=== PATIENT | female | born 1960 | race Caucasian/White ===

== ENCOUNTER 2020-04-30 16:33 | Emergency (ER) | payer MEDICARE, OTHER ==
--- NOTE | 2020-04-30 15:44 | CR ---
EXAMINATION: Chest 1V Frontal SEX: Female AGE: 60 years CLINICAL HISTORY: 60-year-old female complaining of shortness of breath (SOB). No comparison films. Interpretation: Abnormal. 1. Asymmetric dense consolidation left base has the appearance of dependent pleural fluid i.e. effusion (underlying atelectasis or infiltrate a differential consideration). 2. Borderline cardiomegaly but no cephalization vascular flow or alveolar edema. No right pleural effusion. 3. No lung mass or hilar lymphadenopathy. 4. Midline tracheal bronchial airway unremarkable. No pneumothorax or pneumomediastinum. CONCLUSION: Abnormality left lung base (consolidation lower left hemithorax).
--- NOTE | 2020-04-30 15:49 | EDM.PDOC ---
ED HPI GENERAL MEDICAL PROBLEM - General Stated Complaint: AMBULANCE Time Seen by Provider: 04/30/20 16:35 Source of Information: Reports: EMS, Family, RN Notes Reviewed History Limitations: Reports: Altered Mental Status - History of Present Illness INITIAL COMMENTS - FREE TEXT/NARRATIVE: ED via [facility] with report of some confusion last makayla breathing difficulty this afternoon, Was seen in clinic yesterday for routine check up Patient seen on arrival to ED. c . No recent medication changes. Hx COPD.Tonight rubbing head. Recent COVID past 2 week negative. Last hospitalization for pneumonia. SOB tod ay. EMS report acute distress with sats initially in 60-70's . No some improved with hi flow. Daughter reports soft falls" did not hit head, described as dizzy type and lowered to ground before syncope or fall. - Related Data Allergies Allergy/AdvReac Type Severity Reaction Status Date / Time Unable to Assess Allergy Unverified 04/30/20 15:54 ED ROS GENERAL - Review of Systems Review Of Systems: Comprehensive ROS is negative, except as noted in HPI. ED EXAM, GENERAL - Physical Exam Exam: See Below Exam Limited By: No Limitations General Appearance: Moderate Distress, Obese Eye Exam: Bilateral Eye: EOMI Ears: Normal External Exam Nose: Normal Inspection Throat/Mouth: Normal Inspection Head: Atraumatic, Normocephalic Neck: Normal Inspection Respiratory/Chest: Respiratory Distress, Decreased Breath Sounds, Crackles (bses) Cardiovascular: Regular Rate, Rhythm. No: No Edema GI/Abdominal: Soft Extremities: Pedal Edema. No: Joint Swelling Neurological: Slow to Respond Psychiatric: Flat Affect Skin Exam: Warm, Dry, Intact, Pallor Course - Vital Signs Last Recorded V/S: Last Vital Signs Temp 101.1 F H 04/30/20 15:30 Pulse 102 H 04/30/20 16:26 Resp 35 H 04/30/20 15:30 BP 94/46 L 04/30/20 15:30 Pulse Ox 95 04/30/20 16:26 - Orders/Labs/Meds Labs: Laboratory Tests 04/30/20 04/30/20 04/30/20 Range/Units 15:36 15:48 15:50 WBC 3.2 L (5.0-10.0) 10^3/uL RBC 4.41 (4.2-5.4) 10^6/uL Hgb 13.1 (12.0-16.0) g/dL Hct 40.1 (37.0-47.0) % MCV 90.9 (80-100) fL MCH 29.7 (27.0-34.0) pg MCHC 32.7 L (33.0-35.0) g/dL Plt Count 186 (150-450) 10^3/uL Neut % (Auto) 67.8 (42.2-75.2) % Lymph % (Auto) 19.7 L (20.5-50.1) % [place] % (Auto) 11.9 H (2-8) % Eos % (Auto) 0.3 L (1.0-3.0) % Baso % (Auto) 0.3 (0.0-1.0) % Add Manual Diff Yes Neutrophils % (Manual) 49 (42-75) % Band Neutrophils % 9 % Lymphocytes % (Manual) 25 (20-50) % Monocytes % (Manual) 13 H (2-8) % Metamyelocytes % 2 Myelocytes % 2 ABG pH 7.34 L (7.35-7.45) ABG pCO2 26 L (35-45) mmHg ABG pO2 80 (70-100) mmHg ABG HCO3 13.7 L (22-26) mmol/L ABG O2 Saturation 95 (95-100) % ABG Base Excess -10 L ((-2)-(+3)) mmol/L Edgar Test Performed O2 Delivery Device Bipap Sodium (136-145) mmol/L Potassium (3.5-5.1) mmol/L Chloride (98-107) mmol/L Carbon Dioxide (21-32) mmol/L Anion Gap (7-13) mEq/L BUN (7-18) mg/dL Creatinine (0.55-1.02) mg/dL Est Cr Clr Drug Dosing Estimated GFR (MDRD) BUN/Creatinine Ratio (No establ ref range) Glucose (74-99) mg/dL Lactic Acid (0.4-2.0) mmol/L Calcium (8.5-10.1) mg/dL Total Bilirubin (0.2-1.0) mg/dL AST (15-37) U/L ALT (14-59) U/L Alkaline Phosphatase (46-116) U/L Troponin I (0.000-0.056) ng/mL Total Protein (6.4-8.2) g/dL Albumin (3.4-5.0) g/dL Globulin Albumin/Globulin Ratio SARS-CoV-2 RNA (RT-PCR) Negative (NEGATIVE) 04/30/20 04/30/20 Range/Units 15:50 15:50 WBC (5.0-10.0) 10^3/uL RBC (4.2-5.4) 10^6/uL Hgb (12.0-16.0) g/dL Hct (37.0-47.0) % MCV (80-100) fL MCH (27.0-34.0) pg MCHC (33.0-35.0) g/dL Plt Count (150-450) 10^3/uL Neut % (Auto) (42.2-75.2) % Lymph % (Auto) (20.5-50.1) % [place] % (Auto) (2-8) % Eos % (Auto) (1.0-3.0) % Baso % (Auto) (0.0-1.0) % Add Manual Diff Neutrophils % (Manual) (42-75) % Band Neutrophils % % Lymphocytes % (Manual) (20-50) % Monocytes % (Manual) (2-8) % Metamyelocytes % Myelocytes % ABG pH (7.35-7.45) ABG pCO2 (35-45) mmHg ABG pO2 (70-100) mmHg ABG HCO3 (22-26) mmol/L ABG O2 Saturation (95-100) % ABG Base Excess ((-2)-(+3)) mmol/L Edgar Test O2 Delivery Device Sodium 136 (136-145) mmol/L Potassium 4.3 (3.5-5.1) mmol/L Chloride 100 (98-107) mmol/L Carbon Dioxide 17 L (21-32) mmol/L Anion Gap 23.3 H (7-13) mEq/L BUN 36 H (7-18) mg/dL Creatinine 4.19 H (0.55-1.02) mg/dL Est Cr Clr Drug Dosing TNP Estimated GFR (MDRD) 11 BUN/Creatinine Ratio 8.6 (No establ ref range) Glucose 197 H (74-99) mg/dL Lactic Acid 5.3 H* (0.4-2.0) mmol/L Calcium 8.1 L (8.5-10.1) mg/dL Total Bilirubin 0.8 (0.2-1.0) mg/dL AST 147 H (15-37) U/L ALT 56 (14-59) U/L Alkaline Phosphatase 40 L (46-116) U/L Troponin I 0.097 H* (0.000-0.056) ng/mL Total Protein 6.4 (6.4-8.2) g/dL Albumin 2.9 L (3.4-5.0) g/dL Globulin 3.5 Albumin/Globulin Ratio 0.83 SARS-CoV-2 RNA (RT-PCR) (NEGATIVE) Meds: Medications Discontinued Medications Generic Name Dose Route Start Last Admin Trade Name Freq PRN Reason Stop Dose Admin Albuterol Confirm 04/30/20 15:46 04/30/20 16:25 Proventil Neb Soln Administered 04/30/20 15:47 2.5 mg Dose Administration 2.5 mg .ROUTE .STK-MED ONE - Re-Assessments/Exams Free Text/Narrative Re-Assessment/Exam: 05/02/20 15:22 [facility] on arrival of patient, Needing Intubation. [facility] here. Intubation. ET placement confrmed, color change and exray. Good bilaterla breath sounds. OG with minimal return. Departure - Departure Time of Disposition: 17:00 Disposition: DC/Tfer to Acute Hospital 02 Condition: Critical, Undetermined Clinical Impression: COPD exacerbation, Metabolic acidosis, Elevated troponin, Hypoxia, Respiratory distress Congestive heart failure Qualifiers: Heart failure type: unspecified Heart failure chronicity: acute on chronic Qualified Code(s): I50.9 - Heart failure, unspecified Renal failure Qualifiers: Renal failure chronicity: acute Acute renal failure type: unspecified Qualified Code(s): N17.9 - Acute kidney failure, unspecified - Discharge Information *PRESCRIPTION DRUG MONITORING PROGRAM REVIEWED*: No *COPY OF PRESCRIPTION DRUG MONITORING REPORT IN PATIENT TERRIE: No Referrals: Delma Ball MD [Primary Care Provider] - Forms: ED Department Discharge
--- NOTE | 2020-04-30 16:23 | CR ---
PROCEDURE INFORMATION: Exam: XR Chest, 1 View Exam date and time: 04/30/2020 4:09 PM Age: 60 years old Clinical indication: Device placement; Ett placement (vent status); Additional info: Post intubation TECHNIQUE: Imaging protocol: XR of the chest Views: 1 view. COMPARISON: CR Chest 1V Frontal 04/30/2020 3:32 PM FINDINGS: Tubes, catheters and devices: Tip of endotracheal tube 3 cm proximal to the scott. NG tube in the left upper quadrant. Tip of the NG tube is not visualized. Lungs: Patchy opacity left lung base may represent atelectasis and or a pneumonitis. Pleural space: Blunting of the left costophrenic angle consistent with a pleural effusion. Heart/Mediastinum: Unremarkable. No cardiomegaly. Bones/joints: Unremarkable. IMPRESSION: 1. Blunting of the left costophrenic angle consistent with a pleural effusion. 2. Patchy opacity left lung base may represent atelectasis and or a pneumonitis.
[2020-04-30 16:31] LABS: ANION GAP 23.3 mEq/L (7-13); CHLORIDE,CL 100 mmol/L (98-107); SODIUM,NA 136 mmol/L (136-145)
[~2020-04-30 16:33] MED LIST: Albuterol 0.083% 2.5 MG/3 ML Neb Soln ONE
[2020-04-30 16:45] LABS: O2 DELIVERY DEVICE BIPAP
[2020-04-30 16:46] LABS: ALLEN TEST PERFORMED; BASE EXCESS ARTERIAL -10 mmol/L ((-2)-(+3)); BICARBONATE,ARTERIAL 13.7 mmol/L (22-26); O2 SATURATION ARTERIAL 95 % (95-100); PCO2 ARTERIAL 26 mmHg (35-45); PO2 ARTERIAL 80 mmHg (70-100)
== END 2020-04-30 17:01 ==
LOC: DL.ED 16:33
DX: J44.1 Chronic obstructive pulmonary disease with (acute) exacerbation (principal); I50.9 Heart failure, unspecified; N17.9 Acute kidney failure, unspecified; R79.89 Other specified abnormal findings of blood chemistry; E87.2 Acidosis; R09.02 Hypoxemia; R06.03 Acute respiratory distress; Z20.828 Contact with and (suspected) exposure to other viral communicable diseases
CPT/HCPCS: 36415; 36600; 71045; 80053; 82803; 83605; 84484; 85025; 87040; 93005; 94640; 94660; 99285; U0002; J7613-GY